=== PATIENT | male | born 1995 | race Caucasian/White ===

== ENCOUNTER 2017-06-04 19:38 | Emergency (ER) | payer SELFPAY ==
[2017-06-04 19:48] VITALS: BP 131/64
--- NOTE | 2017-06-04 19:48 | UC ---
Upper Extremity HPI - HPI Summary HPI Summary: 21 YEAR OLD WC MALE PRESENTS WITH COMPLAINS OF RIGHT SHOULDER PAIN AFTER SWIMMING. - History of Current Complaint Chief Complaint: UCUpperExtremity Stated Complaint: SHOULDER INJURY (WC) Time Seen by Provider: 06/04/17 19:48 - Allergies/Home Medications Allergies/Adverse Reactions: Allergies Allergy/AdvReac Type Severity Reaction Status Date / Time No Known Allergies Allergy Verified 06/04/17 19:48 PMH/Surg Hx/FS Hx/Imm Hx Previously Healthy: Yes - Surgical History Surgical History: None - Social History Alcohol Use: Occasionally Substance Use Type: None Smoking Status (MU): Never Smoked Tobacco Review of Systems Constitutional: Negative Skin: Negative Eyes: Negative ENT: Negative Respiratory: Negative Cardiovascular: Negative Gastrointestinal: Negative Genitourinary: Negative Motor: Negative Neurovascular: Negative Musculoskeletal: Myalgia, Other: - R9IGHT SHOULDER PAIN Neurological: Negative Psychological: Negative All Other Systems Reviewed And Are Negative: Yes Physical Exam Triage Information Reviewed: Yes Vital Signs: Initial Vital Signs Temp 37.1 C 06/04/17 19:44 Pulse 79 06/04/17 19:44 Resp 16 06/04/17 19:44 BP 131/64 06/04/17 19:44 Pulse Ox 100 06/04/17 19:44 Eye Exam: Normal ENT Exam: Normal Dental Exam: Normal Neck exam: Normal Neck: Positive: 1 Respiratory Exam: Normal Cardiovascular Exam: Normal Abdominal Exam: Normal Musculoskeletal: Positive: Other: - RIGHT SHOULDER PAIN Neurological Exam: Normal Psychological Exam: Normal Skin Exam: Normal Upper Extremity Course/Dx - Differential Dx/Diagnosis Provider Diagnoses: RIGHT SHOULDER PAIN Discharge - Discharge Plan Condition: Stable Disposition: HOME Prescriptions: Meloxicam [Mobic] 7.5 mg PO BID #30 tab Methocarbamol TAB* [Robaxin 500 MG TAB*] 500 mg PO TID PRN #30 tab PRN Reason: Spasms - Muscle Patient Education Materials: Shoulder Pain (ED) Referrals: Hesham Quispe MD [Primary Care Provider] - If Needed
--- NOTE | 2017-06-04 20:19 | RAD ---
INDICATION: Right shoulder injury COMPARISON: None TECHNIQUE: Routine frontal, Y and axial views were obtained. FINDINGS: The bony structures, joint spaces, and soft tissues are normal for age. IMPRESSION: NORMAL STUDY.
== END 2017-06-04 20:38 | disposition home or self-care (01) ==
LOC: UCEAST 19:38
DX: M25.511 Pain in right shoulder (principal)
CPT/HCPCS: 99202; G0463

== ENCOUNTER 2018-05-10 09:53 | Emergency (ER) | payer BC ==
--- NOTE | 2018-05-10 10:02 | UC ---
Throat Pain/Nasal Jigar HPI - HPI Summary HPI Summary: 22 yo male presents with sore throat and swollen tonsils for the last 3 days. He been taking ibuprofen with good relief of pain. Is still able to eat and drink, but does have pain. Denies fever, chills, fatigue, body aches, cough, SOB , chest pain, or rash. - History of Current Complaint Stated Complaint: SORE THROAT Time Seen by Provider: 05/10/18 10:01 Hx Obtained From: Patient Onset/Duration: Sudden Onset Severity: Moderate Pain Intensity: 6 Pain Scale Used: 0-10 Numeric - Allergies/Home Medications Allergies/Adverse Reactions: Allergies Allergy/AdvReac Type Severity Reaction Status Date / Time Tree Nuts AdvReac Heartburn Verified 05/10/18 10:04 PMH/Surg Hx/FS Hx/Imm Hx - Additional Past Medical History Additional PMH: None Previously Healthy: Yes Other History Of: Negative For: Anticoagulant Therapy - Surgical History Surgical History: None - Family History Known Family History: Positive: Cardiac Disease - Social History Occupation: Student Lives: With Family Alcohol Use: Occasionally Substance Use Type: None Smoking Status (MU): Never Smoked Tobacco Review of Systems Constitutional: Negative Skin: Negative Eyes: Negative ENT: Sore Throat Respiratory: Negative Cardiovascular: Negative Gastrointestinal: Negative Neurovascular: Negative Neurological: Negative Psychological: Negative All Other Systems Reviewed And Are Negative: Yes Physical Exam - Summary Physical Exam Summary: GENERAL: NAD. WDWN. No pain distress. SKIN: No rashes, sores, lesions, or open wounds. HEENT: Head: AT/NC Eyes: Conjunctiva clear without inflammation or discharge. Ears: Hearing grossly normal. TMs intact, no bulging, erythema, or edema. Nose: Nasal mucosa pink and moist. NTTP maxillary and frontal sinus. Throat: Posterior oropharynx moderate erythema and 4+ tonsillar enlargement. Moderate exudates. Uvula midline. No hoarse voice or muffled voice. NECK: Supple. Mildly TTP tonsillar LAD. CHEST: CTAB. No r/r/w. No accessory muscle use. Breathing comfortably and in no distress. CV: RRR. Without m/r/g. Pulses intact. Brisk cap refill. NEURO: Alert. CN II-XII grossly intact. PSYCH: Age appropriate behavior. Triage Information Reviewed: Yes Vital Signs: Vital Signs: Temp Pulse Resp BP Pulse Ox 98.0 F 87 18 126/66 100 05/10/18 10:07 05/10/18 10:07 05/10/18 10:07 05/10/18 10:07 05/10/18 10:07 Laboratory Tests 05/10/18 10:09 Group A Strep Rapid Negative Throat Pain/Nasal Course/Dx - Course Course Of Treatment: POC strep negative. Suspect tonsillitis. Given his degree of tonsillar swelling, he was given 250mg Ceftriaxone and 4mg Dexamethasone in the clinic. Rx for Augmentin and prednisone. - Differential Dx/Diagnosis Provider Diagnoses: Tonsillitis Discharge - Sign-Out/Discharge Documenting (check all that apply): Discharge/Admit/Transfer - Discharge Plan Condition: Stable Disposition: HOME Prescriptions: Amoxicillin/Clavulanate TAB* [Augmentin TAB 875*] 875 mg PO BID #20 tab predniSONE TAB* [Deltasone TAB*] 50 mg PO DAILY #5 tab Patient Education Materials: Tonsillitis (ED) Referrals: Hesham Quispe MD [Primary Care Provider] - Additional Instructions: If you develop a fever, shortness of breath, chest pain, new or worsening symptoms - please call your PCP or go to the ED. 1) If your sore throat/swelling does not improve or if it worsens - please go to the ER - Billing Disposition and Condition Condition: STABLE Disposition: Home
[2018-05-10 10:09] VITALS: BP 126/66
[2018-05-10] MEDS ORDERED: cefTRIAXone VIAL(*) 250 MG VIAL IM ONE (10:25)
[2018-05-10] MEDS ORDERED: Dexamethasone TAB* 4 MG PO ONE (10:25)
[2018-05-10] MEDS ORDERED: Lidocaine 1% MPF* 2 ML VIAL INJ ONE (10:25)
[2018-05-10] MEDS ORDERED: Lidocaine 1%* 5 ML VIAL ONE (10:31)
== END 2018-05-10 10:59 | disposition home or self-care (01) ==
LOC: UCEAST 09:53
DX: J03.90 Acute tonsillitis, unspecified (principal); Z91.018 Allergy to other foods
CPT/HCPCS: 87651; 96372; 99212; G0463; J0696; J8540